=== PATIENT | male | born 1985 | race Caucasian/White ===

== ENCOUNTER 2017-06-28 10:46 | Emergency (ER) | payer OTHER ==
[2017-06-28] MEDS ORDERED: IBUPROFEN 600 MG TAB PO ONE (11:03)
[2017-06-28] MEDS ORDERED: ACETAMINOPHEN 500 MG TAB PO ONE (11:04)
[2017-06-28 11:18] VITALS: BP 125/74; PULSE 107; RESP 18; TEMP 98.6; O2SAT 95
--- NOTE | 2017-06-28 11:19 | EDPHY ---
H & P Time Seen by Provider: 06/28/17 10:49 HPI/ROS: This patient complains of low back pain. He is brought in by family friend by private vehicle for evaluation of right lumbar paraspinous pain. The onset of the pain was yesterday while moving. He was caring objects from car to his new home and when he straightened up from a bent over position at abrupt onset of right lumbar pain. This occurred after moving for several hours prior to that a lifting objects. However he did have pain until the last episode of bending and straightening. Yesterday the pain was moderate in this morning the pain is worse-7/10 achy in nature with episodes of muscle spasm. The pain worsens with movement. The pain radiates down the back of his right leg toward his knee but not beyond his knee. It also radiates upward toward the mid thoracic region. Patient reports some intermittent low back pains in the past of mild intensity but never severe pain prior to this. ROS: Constitutional-no fevers HEENT: No complaints Neuro: No numbness tingling or focal weakness. No bowel or bladder incontinence. pulmonary: No shortness of breath : No dysuria, testicular pain GI: Patient is concerned that he may have caused hernia from lifting. However he has no significant abdominal pain. Integumentary: No skin rash 7 point ROS is otherwise negative. Past Medical/Surgical History: Otherwise healthy Social History: Recently moved to the [place] from [place] Smoking Status: Former smoker Physical Exam: General Appearance: Anxious young man Alert, no distress. Eyes: Pupils equal and round no pallor or injection. ENT, Mouth: Mucous membranes moist. Respiratory: There are no retractions, lungs are clear to auscultation. Cardiovascular: Regular rate and rhythm. Gastrointestinal: Abdomen is soft and nontender, no masses, bowel sounds normal. : No testicular tenderness. No evidence of inguinal hernia. Back: No midline tenderness. He has paraspinous right lumbar muscular tenderness with spasm. Straight leg raise is negative bilaterally. He has limited range of motion for flexion due to pain. Neurological: GCS 15. He maintains 2+ symmetric patellar and Achilles DTRs bilaterally with 5/5 strength in great toe dorsiflexion plantar flexion and normal light touch sensory exam bilateral lower extremities. Skin: Warm and dry, no rashes. DIFFERENTIAL DIAGNOSIS: After history and physical exam differential diagnosis was considered for low back muscle strain, doubt disc injury, doubt bony abnormality Constitutional: Initial Vital Signs Temperature (C) 37.0 C 06/28/17 10:52 Heart Rate 107 H 06/28/17 10:52 Respiratory Rate 18 06/28/17 10:52 Blood Pressure 125/74 H 06/28/17 10:52 O2 Sat (%) 95 06/28/17 10:52 O2 Delivery Mode Room Air Allergies/Adverse Reactions: Penicillins Allergy (Verified 06/28/17 10:51) Home Medications: Medication Instructions Recorded Ibuprofen [Motrin (*)] 600 mg PO Q6 PRN #30 tab 06/28/17 Methocarbamol [Robaxin 750 mg (*)] 750 - 1,500 mg PO QID PRN #30 tab 06/28/17 traMADol [Ultram 50 mg (*)] 50 - 100 mg PO Q4 PRN #20 tab 06/28/17 MDM/Departure - MDM Medications Given: Discontinued Medications Acetaminophen (Tylenol) 1,000 mg PO EDNOW ONE Stop: 06/28/17 11:05 Last Admin: 06/28/17 11:07 Dose: 1,000 mg Ibuprofen (Motrin) 600 mg PO EDNOW ONE Stop: 06/28/17 11:04 Last Admin: 06/28/17 11:07 Dose: 600 mg ED Course/Re-evaluation: Clinical findings are consistent with low back strain. I counseled the patient regarding this. He had taken any medication for symptoms. He preferred not to have assist sedating medication while here so history with ibuprofen Tylenol. I counseled regarding low back strain and demonstrated some stretches that may assist in his recovery. No evidence of cauda equina syndrome , infectious etiology or other concerning findings. - Depart Disposition: Home, Routine, Self-Care Clinical Impression: Low back strain Qualifiers: Encounter type: initial encounter Qualified Code(s): S39.012A - Strain of muscle, fascia and tendon of lower back, initial encounter Condition: Good Instructions: Low Back Strain (ED) Additional Instructions: DX: Low back strain Plan: Ibuprofen 400-600 mg per 6 hours regularly for the next week then as needed. Methocarbamol muscle relaxants as needed. Tylenol & tramadol in addition as needed for pain. No driving alcohol or work on Tramadol. Starts daily stretches prior to taking muscle relaxants and Vicodin in the morning. 3-5 minutes each of: "Butterfly stretch," "Sphinx stretch", "pigeon stretch", and hamstring stretch. Avoid lifting more than 5-10 pounds until symptoms improve. Call your primary care physician for a followup appointment in 3-7 days. Go to the emergency department for worsening of your symptoms despite the treatment plan. Stand Alone Forms: Work Excuse Prescriptions: Ibuprofen [Motrin (*)] 600 mg PO Q6 PRN #30 tab PRN Reason: Pain Methocarbamol [Robaxin 750 mg (*)] 750 - 1,500 mg PO QID PRN #30 tab PRN Reason: Muscle Spasms traMADol [Ultram 50 mg (*)] 50 - 100 mg PO Q4 PRN #20 tab PRN Reason: breakthrough pain Referrals: Pao Pandya MD [Medical Doctor] - As per Instructions
== END 2017-06-28 11:34 | disposition home or self-care (01) ==
LOC: CED 10:46
DX: S39.012A Strain of muscle, fascia and tendon of lower back, initial encounter (principal); Z87.891 Personal history of nicotine dependence; X50.0XXA Overexertion from strenuous movement or load, initial encounter